=== PATIENT | female | born 1980 | race Caucasian/White ===

== ENCOUNTER 2017-07-08 02:29 | Emergency (ER) | payer MEDICAID ==
[~2017-07-08] VITALS: Ht 167.6 cm; Wt 63.5 kg
--- NOTE | 2017-07-08 02:42 | NUR ---
Patient ambulated to ER with steady gait, accompanied by , c/o redness, irritation, and discharge on both eyes x 5 days. Patient reports son had conjunctivitis and was given eye drops, she started using the eye drops on herself but no effect.
--- NOTE | 2017-07-08 02:51 | NUR ---
Dr. Weston at bedside for MSE.
--- NOTE | 2017-07-08 03:04 | NUR ---
Patient discharged to home in stable conditon. Written and verbal after care instructions given. Patient verbalizes understanding of instructions. Patient ambulated out of ER with steady gait, no acute signs of distress, VSS, all belongings taken, accompanied by .
[2017-07-08 03:11] VITALS: BP 119/78
== END 2017-07-08 03:11 | disposition home or self-care (01) ==
LOC: ER 02:33
DX: H10.89 Other conjunctivitis (principal); F17.210 Nicotine dependence, cigarettes, uncomplicated
CPT/HCPCS: A4663